=== PATIENT | male | born 1950 | race Caucasian/White ===

== ENCOUNTER 2023-01-05 08:52 | Outpatient (CLI) | payer OTHER | END 2023-01-05 08:55 | disposition home or self-care (01) | LOC: SONOGRAMA 08:52 | PROVIDERS: ATTEND Pathology Anatomic Pathology & Clinical Pathology | DX: D34 Benign neoplasm of thyroid gland (principal); E06.3 Autoimmune thyroiditis; E03.9 Hypothyroidism, unspecified; E04.2 Nontoxic multinodular goiter ==